=== PATIENT | female | born 1990 | race American Indian/Alaskan Native ===

== ENCOUNTER 2021-08-16 04:40 | Inpatient (IN) | payer BC ==
[2021-08-16] MEDS ORDERED: Citric Acid/Sodium Citrate Solution 30 ML Cup PO ONE (04:48)
[2021-08-16] MEDS ORDERED: Sodium Chloride 0.9% 10 ML Syringe FLUSH PRN (04:48)
[2021-08-16] MEDS ORDERED: Sodium Chloride 0.9% 2.5 ML Syringe FLUSH PRN (04:48)
[2021-08-16] MEDS ORDERED: Sodium Chloride 0.9% 20 ML SDV IV PRN (04:48)
[2021-08-16] MEDS ORDERED: Oxytocin/0.9 % Sodium Chloride 30 UNIT/500 ML BAG IV SCH (05:00)
[2021-08-16] MEDS ORDERED: Lactated Ringers 1,000 ML IV SCH ×2 (05:00→08:15)
[2021-08-16] MEDS ORDERED: Ondansetron 4 MG/2 ML SDV ONE (06:20)
[2021-08-16] MEDS ORDERED: Morphine PF 10 MG/10 ML SDV ONE (06:20)
[2021-08-16] MEDS ORDERED: ceFAZolin 1 GM Vial ONE (06:20)
[2021-08-16] MEDS ORDERED: Dexamethasone 4 MG/ML 5 ML MDV ONE (06:20)
[2021-08-16] MEDS ORDERED: Phenylephrine 1% 10 MG/ML SDV ONE (06:20)
[2021-08-16] MEDS ORDERED: fentaNYL 100 MCG/2 ML SDV ONE (06:20)
[2021-08-16] MEDS ORDERED: Lidocaine 2% 5 ML SDV ONE (06:22)
[2021-08-16] MEDS ORDERED: Oxytocin 10 Units/1 ML SDV ONE (06:32)
[2021-08-16] MEDS ORDERED: Acetaminophen/oxyCODONE 325-5 MG Tab PO PRN ×2 (06:37→08:15)
[2021-08-16] MEDS ORDERED: Naloxone 0.4 MG/ML SDV IVPUSH PRN (06:37)
[2021-08-16] MEDS ORDERED: HYDROmorphone 1 MG/ML Syringe IVPUSH PRN (06:37)
[2021-08-16] MEDS ORDERED: Ondansetron 4 MG/2 ML SDV IVPUSH PRN ×3 (06:37→08:15)
[2021-08-16] MEDS ORDERED: ePHEDrine 50 MG/ML SDV IVPUSH PRN (06:37)
[2021-08-16] MEDS ORDERED: Albuterol 0.083% 2.5 MG/3 ML Neb Soln NEB PRN (06:37)
[2021-08-16] MEDS ORDERED: fentaNYL 100 MCG/2 ML SDV IVPUSH PRN (06:37)
[2021-08-16] MEDS ORDERED: fentaNYL 50 MCG/ML SDV IVPUSH PRN (06:37)
[2021-08-16] MEDS ORDERED: diphenhydrAMINE 50 MG/ML SDV IVPUSH PRN ×2 (06:37→08:15)
[2021-08-16] MEDS ORDERED: Morphine 4 MG/ML VIAL IVPUSH PRN (06:37)
[2021-08-16] MEDS ORDERED: Metoclopramide 10 MG/2 ML SDV IVPUSH PRN (06:37)
[2021-08-16] MEDS ORDERED: Methylergonovine 0.2 MG/1 ML Amp IM PRN (08:15)
[2021-08-16] MEDS ORDERED: Bisacodyl 10 MG Supp RECTAL PRN (08:15)
[2021-08-16] MEDS ORDERED: Tranexamic Acid 1,000 MG in Sodium Chloride 0.9% 100 ML IV PRN (08:15)
[2021-08-16] MEDS ORDERED: Ibuprofen 800 MG Tab PO PRN (08:15)
[2021-08-16] MEDS ORDERED: Misoprostol 200 MCG Tab RECTAL PRN (08:15)
[2021-08-16] MEDS ORDERED: Lanolin 100% Cream 7 GM Tube TOP PRN (08:15)
[2021-08-16] MEDS ORDERED: Oxytocin 10 Units/1 ML SDV IM PRN (08:15)
[2021-08-16] MEDS: Ketorolac 30 MG/ML SDV IVPUSH SCH ×3 (08:45→20:46)
[2021-08-16] MEDS: Docusate Sodium 100 MG Cap PO SCH ×2 (11:42→20:47)
[2021-08-17] MEDS: Ketorolac 30 MG/ML SDV IVPUSH SCH ×2 (02:34→08:35)
[2021-08-17] MEDS: Docusate Sodium 100 MG Cap PO SCH ×2 (08:35→20:54)
[2021-08-17] MEDS: Acetaminophen/oxyCODONE 325-5 MG Tab PO PRN (15:08)
[2021-08-18] MEDS: Acetaminophen/oxyCODONE 325-5 MG Tab PO PRN (07:17)
== END 2021-08-18 12:26 | disposition home or self-care (01) | DRG 540 ==
LOC: MW.OB 04:40
PROVIDERS: ADMIT Obstetrics & Gynecology; ATTEND Obstetrics & Gynecology
PROC: 10D00Z1 Extraction of Products of Conception, Low, Open Approach (ICD-10-PCS; principal; 2021-08-16)
DX: O34.211 Maternal care for low transverse scar from previous cesarean delivery (principal); Z37.0 Single live birth; O99.214 Obesity complicating childbirth; Z20.822 Contact with and (suspected) exposure to COVID-19; Z3A.39 39 weeks gestation of pregnancy; Z87.891 Personal history of nicotine dependence
CPT/HCPCS: 01961; 36415; 59025; 82803; 85014; 85018; 85027; 86592; 86850; 86900; 86901; A9270-GY; J0690; J1100; J1790; J1885; J2274; J2370; J2405; J2590; J3010; J7120; U0002